=== PATIENT | female | born 1960 | race Asian ===

== ENCOUNTER 2018-05-07 09:48 | Day surgery (SDC) | payer MEDICARE, OTHER ==
[~2018-05-07] VITALS: Ht 157.5 cm; Wt 73.1 kg
[~2018-05-07 09:48] MED LIST: ASPI-621 PO; ATOR20TA PO; CARV6.2512 PO; CLOP75TA52 PO; FURO-93 PO; GLIM1TAB PO; INSU100V8 SQ; IRON1TAB60 PO; LISI-167 PO; LISI5TAB7 PO; METF500T17 PO; OXYC5TAB3 PO; POLY17PO5 PO; TRAM50TA2 PO
[2018-05-07] MEDS ORDERED: SODIUM CHLORIDE 0.9% 1,000 ML IV SCH (10:17)
[2018-05-07 10:27] VITALS: BP 152/80
[2018-05-07] MEDS ORDERED: PLEASE ENTER HEIGHT AND WEIGHT MC SCH (10:30)
[2018-05-07 10:52] LABS: BASOPHILS # (AUTO) 0.05 x10^3/uL (0-0.1); BASOPHILS % (AUTO) 1 % (0-1); EOSINOPHILS # (AUTO) 0.56 x10^3/uL (0-0.4); EOSINOPHILS % (AUTO) 7 % (1-7); LYMPHOCYTES % (AUTO) 22 % (22-44); MD NO; MEAN CORPUSCULAR HEMOGLOBIN 32.3 pg (27.0-34.8); MEAN CORPUSCULAR HGB CONC 33.9 g/dL (32.4-35.8); MEAN CORPUSCULAR VOLUME 95.2 fL (80-100); MEAN PLATELET VOLUME 6.6 fL (7.4-10.4); MONOCYTES # (AUTO) 0.83 x10^3/uL (0.2-0.8); MONOCYTES % (AUTO) 10 % (2-9); NEUTROPHILS # (AUTO) 4.87 x10^3/uL (1.8-6.8); NEUTROPHILS % (AUTO) 60 % (42-75); PLATELET COUNT 271 x10^3/uL (130-400); RED BLOOD COUNT 3.13 x10^6/uL (3.82-5.3)
[2018-05-07] MEDS ORDERED: HEPARIN 1,000 UNITS/ML, 10ML ONE (10:57)
[2018-05-07] MEDS ORDERED: CEFAZOLIN 1,000 MG ONE (11:05)
[2018-05-07] MEDS ORDERED: PROPOFOL 10 MG/ML, 20ML ONE (11:05)
[2018-05-07] MEDS ORDERED: LIDOCAINE 1%-EPI 1:100K, 30ML ONE (11:16)
[2018-05-07] MEDS ORDERED: FENTANYL PF 100 MCG/2ML ONE (11:44)
[2018-05-07] MEDS ORDERED: MIDAZOLAM 1 MG/ML, 2ML ONE (11:45)
== END 2018-05-07 13:20 | disposition home or self-care (01) ==
LOC: OUT 09:48
PROVIDERS: ATTEND Surgery Vascular Surgery
DX: I12.0 Hypertensive chronic kidney disease with stage 5 chronic kidney disease or end stage renal disease (principal); E11.22 Type 2 diabetes mellitus with diabetic chronic kidney disease; N18.6 End stage renal disease; Z79.82 Long term (current) use of aspirin
CPT/HCPCS: 36415; 36821; 80047; 85025; 93005; J0690; J1644; J2250; J2704; J3010; J3490; J7030